=== PATIENT | female | born 1965 | race Caucasian/White ===

== ENCOUNTER → 2024-03-11 08:44 | Outpatient (REF) | payer OTHER, SELFPAY | LOC: WDC 08:44 | PROVIDERS: ATTENDING PHYSICIAN Obstetrics & Gynecology; FAMILY PHYSICIAN Family Medicine | DX: R92.30 Dense breasts, unspecified (principal) | CPT/HCPCS: 76641 ==

== ENCOUNTER → 2024-10-07 13:35 | Outpatient (REF) | payer BC, SELFPAY | LOC: WDC 13:35 | PROVIDERS: ATTENDING PHYSICIAN Obstetrics & Gynecology; FAMILY PHYSICIAN Family Medicine | DX: Z12.31 Encounter for screening mammogram for malignant neoplasm of breast (principal) | CPT/HCPCS: 77063; 77067 ==

== ENCOUNTER → 2025-02-11 13:41 | Outpatient (REF) | payer BC, SELFPAY | LOC: WDC 13:41 | PROVIDERS: ATTENDING PHYSICIAN Obstetrics & Gynecology; FAMILY PHYSICIAN Family Medicine | DX: R92.2 Inconclusive mammogram (principal) | CPT/HCPCS: 76641 ==

== ENCOUNTER 2025-07-02 12:14 | Emergency (ER) | payer BC, SELFPAY ==
[2025-07-02 12:21] VITALS: BP 131/75
--- NOTE | 2025-07-02 15:09 | ED.GENMED ---
History of Present Illness
General
Chief Complaint: Fall
Source: patient
Exam Limitations: none
Time Seen by Provider: 07/02/25 14:26
Nursing documentation reviewed up to this point in time: agreed with
History of Present Illness
History of Present Illness:
Patient is a 60-year-old female who presents to the emergency department after diagnosis of sternal fracture at urgent care. Patient states that she had a mechanical trip and fall at a restaurant 8 days ago where she fell forward striking her chest
on a table. She has since had pain in her chest, worse with inspiration. She reports a ' spasm' type pain in her mid chest. Patient has been treating symptoms supportively at home where she felt she was initially seeing improvement until today
her pain seemed to intensify prompting visit to urgent care. X-ray films in urgent care revealed a nondisplaced distal sternal fracture and she was referred to the emergency department for further evaluation.
Patient denies any fever, productive cough, shortness of breath. No neck or back pain. No numbness/tingling or weakness in extremities. No abdominal pain.
Fall was not associated with any head strike, LOC, or any other injuries.
Review of Systems
Review of Systems
Allergies reviewed?: Yes
All Other Systems: ROS reviewed and negative except as documented in HPI and ROS
Phy Exam
Physical Exam
Physical Exam:
Vitals: Patient's vital signs are stable. Afebrile
General: Patient is well appearing, no acute distress. Nontoxic appearing
Skin: Warm and dry, no rashes or lesions. Healing ecchymoses across mid chest.
Head: Normocephalic, atraumatic
Eyes: Sclera nonicteric.
Throat: Protecting airway
Neck: Normal ROM, no cervical spine tenderness, no meningismus
Cardiac: Regular rate and rhythm, no murmurs. Healing ecchymoses to mid chest as above with point tenderness to distal sternum.
Pulm: Normal respiratory effort, no wheezes, rales, rhonchi heard on exam.
Abdomen: Abdomen soft and nontender.
Extremities: No evidence of cyanosis or edema. Atraumatic and nontender with full range of motion
Neuro: AAOx3. Grossly intact.
Psychiatric: Normal affect.
Course
Orders/Labs/Results
Orders:
Orders
07/02/25 15:05
Ketorolac [Toradol] 15 mg IM NOW STA
Vital Signs
Initial and Last Documented VS:
Initial Vital Signs
Temp Pulse Resp BP Pulse Ox
98.3 F 72 18 131/75 99
07/02/25 12:21 07/02/25 12:21 07/02/25 12:21 07/02/25 12:21 07/02/25 12:21
Last Documented Vital Signs
Temp Pulse Resp BP Pulse Ox
98.3 F 72 18 131/75 99
07/02/25 12:21 07/02/25 12:21 07/02/25 12:21 07/02/25 12:21 07/02/25 15:09
MDM/Problems Addressed
Differential Diagnosis Includes:
Not limited to: Sternal fracture, rib contusion/rib fracture, pneumothorax, pneumonia, pleural effusion, etc.
MDM/Problems Addressed:
60-year-old female with sternal fracture which occurred 8 days ago during mechanical trip and fall. No other associated injuries at that time. Patient with lingering pleuritic discomfort however no fevers, productive cough, exertional chest pain.
Patient mildly hypertensive with otherwise stable vital signs. She is not hypoxic. On exam�patient well-appearing, in no apparent respiratory distress. She does have healing ecchymosis across the central chest with point tenderness of the
sternum. No tenderness to anterior/posterior ribs, cervical spine. Heart regular rate and rhythm. Lungs clear bilaterally.
I did review reports from both chest x-ray and sternum x-ray which show a nondisplaced distal sternal fracture without any evidence of complications. No evidence of pneumothorax, pleural effusion, pneumonia. No associated rib was noted.
Given injury was 8 days ago without any evidence of complications�do not feel further imaging with CT scan indicated. At this point�feel patient stable for discharge home with pain control, primary care follow-up. Will send prescription for muscle
relaxer to try for 'spasm 'type pain as well as tramadol to use as needed. Very lengthy discussion with patient regarding instructions for use and not using these medications together as they both have sedating effects. Advised Tylenol, Motrin.
She will follow-up with primary care next week for further evaluation. Will provide incentive spirometer. Patient stable for discharge home
Chronic conditions affecting care:
N/A
Acute Exacerbation and/or Progression of Chronic Illness:
N/A
*Pulse Oximetry
SaO2: 99
Oxygen Mode of Delivery: Room air
Patient hypoxic: no
*EKG
Interpreted by ED Provider?: NA
*Junior Php Developer Interpretation
Rate: Junior Php Developer- N/A
*Critical Care Note
Total Time (30-74mins, 75-104mins- exclusive of procedures): Not Applicable
Data Reviewed
Review of Other/Old Records Reveals: Radiology Studies (Outpatient chest x-ray/sternal x-ray which reveals nondisplaced fracture of distal sternum)
ED Attending Note
-
Portions of this chart may have been created with voice recognition software.� Occasional wrong word or��sound alike� substitutions may have occurred due to the inherent limitations of voice recognition software.
Discharge Plan
Departure
Patient Disposition: Home (Routine Discharge)
Date of Disposition: 07/02/25
Time of Disposition: 15:52
Patient with high blood pressure during this ER visit?: Yes
Discharge Problem:
Sternal fracture
Instructions: Sternal Fracture (DC)
Prescriptions:
New
tramadol 50 mg tablet
50 mg PO Q6H PRN (Reason: Pain) Qty: 7 0RF
cyclobenzaprine 10 mg tablet
10 mg PO HS Qty: 7 0RF
Referrals:
Bonnie Choi MD [Family Provider] - Follow up in 5-7 days
Activity Restrictions/Additional Instructions:
RETURN TO THE EMERGENCY DEPARTMENT WITH ANY WORSENING CHEST PAIN/SHORTNESS OF BREATH, FEVER OR PRODUCTIVE COUGH, INTRACTABLE PAIN, OR ANY OTHER CONCERNS
- As discussed�your x-ray imaging showed evidence of a nondisplaced dental fracture.
- Continue to use Tylenol and/or Motrin as needed for pain. You can apply topical lidocaine patches, as well. For intractable pain a prescription has been sent for tramadol which you should only take prior to sleeping as it may cause drowsiness.
- For muscle spasm pain�you can try the muscle relaxer which should also only be taken prior to bed as this may cause drowsiness.
- DO NOT TAKE TRAMADOL AND CYCLOBENZAPRINE TOGETHER
- Please use incentive spirometer 10 times per hour when awake to continually inflate lungs.
- Follow-up with primary care for further evaluation/management to ensure that your symptoms are improved.
Monitor your symptoms closely and return to the emergency department with any acute worsening/new symptoms or any other concerns
Interventions
Interventions:
*Risk Screen - Suicide Last Done: 07/02/25 12:23
*General Assessment Last Done: 07/02/25 12:23
*Neglect/Abuse Screening Last Done: 07/02/25 16:18
*ED COVID-19 Vaccine History Last Done: 07/02/25 12:23
*Nursing Disposition Last Done: 07/02/25 16:18
ED-Musculoskeletal Assessment Last Done: 07/02/25 16:17
ED- Neurological Assessment Last Done: 07/02/25 16:17
ED-Skin Assessment Last Done: 07/02/25 16:17
Discharge Date and Time
Discharge Date/Time: 07/02/25 16:19
Print Language: SLOVAK
[2025-07-02] MEDS: TORADOL 15 MG IM (16:10)
== END 2025-07-02 16:19 | disposition home or self-care (01) ==
LOC: EMR 12:14
PROVIDERS: EMERGENCY PHYSICIAN Emergency Medicine; FAMILY PHYSICIAN Family Medicine
DX: S22.20XA Unspecified fracture of sternum, initial encounter for closed fracture (principal); R03.0 Elevated blood-pressure reading, without diagnosis of hypertension; W01.190A Fall on same level from slipping, tripping and stumbling with subsequent striking against furniture, initial encounter; Y92.511 Restaurant or cafe as the place of occurrence of the external cause
CPT/HCPCS: 96372; 99284

== ENCOUNTER → 2025-10-12 11:35 | Outpatient (REF) | payer BC, SELFPAY | LOC: WDC 11:35 | PROVIDERS: ATTENDING PHYSICIAN Obstetrics & Gynecology; FAMILY PHYSICIAN Family Medicine | DX: Z12.31 Encounter for screening mammogram for malignant neoplasm of breast (principal) | CPT/HCPCS: 77063; 77067 ==